=== PATIENT | female | born 1985 | race Two or more races ===

== ENCOUNTER 2019-05-26 10:00 | Inpatient (IN) | payer MEDICAID ==
[~2019-05-26] VITALS: Ht 152.4 cm; Wt 71.0 kg
[2019-05-27 10:38] VITALS: BMI 28.6
[2019-05-27] MEDS ORDERED: LACTATED RINGER'S 1,000 ML IV SCH ×2 (10:39→17:56)
[2019-05-27] MEDS ORDERED: METHYLERGONOVINE 0.2 MG INJ IM PRN ×2 (11:00→18:00)
[2019-05-27] MEDS ORDERED: AZITHROMYCIN 500MG/NS (PMX) 250 ML IV SCH (11:00)
[2019-05-27] MEDS ORDERED: CARBOPROST 250 MCG INJ IM PRN ×2 (11:00→18:00)
[2019-05-27] MEDS ORDERED: CEFAZOLIN 2 GM/50 ML (PMX) 50 ML IVPB SCH (11:00)
[2019-05-27] MEDS ORDERED: OXYTOCIN 30 UNITS/LR 500 ML IV PRN ×2 (11:00→18:00)
[2019-05-27] MEDS ORDERED: MISOPROSTOL 200 MCG TAB PR PRN ×2 (11:00→18:00)
[2019-05-27] MEDS ORDERED: LACTATED RINGER'S 1,000 ML IV ONE (11:19)
--- NOTE | 2019-05-27 11:19 | PREAC ---
Date/Time of Note Date/Time of Note DATE: 05/27/19 TIME: 11:18 Anesthesia Eval and Record Evaluation Time Pre-Procedure Interview DATE: 05/27/19 TIME: 11:18 Age 33 Sex female NPO: 8 hrs Preoperative diagnosis intrauterine Planned procedure repeat c section Past Medical History Past Medical History: Includes : : (3), Para: (2), Gestational age: (39) Surgery & Anesthesia Issues No known issue Meds Anticoagulation: No Beta Lenin within 24 hr: No Reason Beta Lenin not given: Pt. not on B-Lenin Current Medications Lactated Ringer's 1,000 ml @ 125 mls/hr Q8H IV ; Start 05/27/19 at 10:39 Cefazolin Sodium/ Dextrose 50 ml @ 100 mls/hr ONCE IVPB ; Start 05/27/19 at 11:00 Azithromycin 250 ml @ 250 mls/hr ONCE IV ; Start 05/27/19 at 11:00 Oxytocin/Lactated Ringer's 500 ml @ 0 mls/hr ONCE PRN IV .VAGINAL BLEEDING; Start 05/27/19 at 11:00 Methylergonovine Maleate (Methergine) 0.2 mg ONCE PRN IM .VAGINAL BLEEDING; Start 05/27/19 at 11:00 Carboprost Tromethamine (Hemabate) 250 mcg ONCE PRN IM .VAGINAL BLEEDING; Start 05/27/19 at 11:00 Misoprostol (Cytotec) 1,000 mcg ONCE PRN VA .VAGINAL BLEEDING; Start 05/27/19 at 11:00 Meds reviewed: Yes Allergies Coded Allergies: No Known Allergy (Verified , 04/13/10) Allergies Reviewed: Yes Labs/Studies Labs Reviewed: Reviewed by anesthesiologist Result Diagram: 05/27/19 1055 Laboratory Tests 05/27/19 10:55 test: N/A Pre-procedure Exam Airway: Adequate mouth opening, Adequate thyromental dist Mallampati: Mallampati II Teeth: Normal Lung: Normal Heart: Normal ASA Physical Status ASA physical status: 2 Emergency: None Planned Anesthetic Neuraxial: Spinal Planned Pain Management Sub-arachniod narcotics, Parenteral pain med Pre-operative Attestations Prior to commencing anesthesia and surgery, the patient was re-evaluated, there was verification of: *The patient's identity *The results of appropriate recent lab work and preoperative vital signs *The above evaluation not changing prior to induction *Anesthetic plan, risk benefits, alternative and complications discussed with patient/family; questions answered; patient/family understands, accepts and wishes to proceed. LIBRADO BUSTAMANTE MD May 27, 2019 11:19
[2019-05-27] MEDS ORDERED: FAMOTIDINE 20 MG INJ IV ONE (11:30)
[2019-05-27] MEDS ORDERED: METOCLOPRAMIDE 10 MG INJ IV ONE (11:30)
[2019-05-27] MEDS ORDERED: CITRIC ACID/NA CITRATE 30 ML CUP PO ONE (11:30)
[2019-05-27 11:38] VITALS: BP 115/64; PULSE 63
[2019-05-27 12:59] VITALS: Ht 152.4 cm; Wt 71.0 kg
--- NOTE | 2019-05-27 13:20 | HP ---
Date/Time of Note Date/Time of Note DATE: 05/27/19 TIME: 13:18 OB - History Hx of Present Chief Complaint: scheduled Estimated Due Date: Jun 02, 2019 : 3 Para: 2 Spontaneous : 0 Therapeutic : 0 Care: Good Care Ultrasounds: Normal mid trimester US Obstetrical Complications: None Medical Complications: None Past Family/Social History * Past Medical, Surgical, Family and Obstetric Histories reviewed from chart. GBS Status: Negative OB Admission Exam Vital Signs Vital Signs Vital Signs Date Temp Pulse Resp B/P (MAP) Pulse Ox O2 O2 Flow FiO2 Time Delivery Rate 05/27/19 97.4 63 115/64 Room Air 11:38 (81) Physical Exam HEENT: WNL Heart: Rhythm Normal Lungs: Clear, Equal Abdomen: WNL Extremities: Normal Reflexes: Normal Cervical Dilatation: None Heart Rate: 120's Accelerations: Accelerations Present Decelerations: No Decelerations Varibility: Moderate Last 72 hours Lab Results CBC & BMP 05/27/19 10:55 OB Assessment/Plan Reason for admission: section Other Assessment: voluntary sterilization Plan: Section, Other Other plan: Bilateral tubal ligation REG SALDANA MD May 27, 2019 13:20
[2019-05-27] MEDS ORDERED: morphine SULFATE/PF (10 MG/10 ML) INJ ONE (13:29)
[2019-05-27] MEDS ORDERED: EPHEDrine 25 MG/5 ML SYG ONE (13:30)
[2019-05-27] MEDS ORDERED: NALOXONE (0.4 MG/ML) INJ IV PRN (14:00)
[2019-05-27] MEDS ORDERED: HYDROmorphONE 1 MG/5 ML IV SYRINGE IV PRN ×3 (14:00)
[2019-05-27] MEDS ORDERED: DIPHENHYDRAMINE 50 MG INJ IV PRN ×2 (14:00)
[2019-05-27] MEDS ORDERED: PROCHLORPERAZINE 10 MG INJ IV PRN (14:00)
[2019-05-27] MEDS ORDERED: KETOROLAC 30 MG INJ IV PRN (14:00)
[2019-05-27] MEDS ORDERED: MEPERIDINE 25 MG INJ IV PRN (14:00)
[2019-05-27] MEDS ORDERED: NALBUPHINE HCL (10 MG/1 ML) INJ IV PRN (14:00)
[2019-05-27] MEDS ORDERED: EPHEDrine 25 MG/5 ML SYG IV PRN (14:00)
[2019-05-27] MEDS ORDERED: FENTAnyl 50 MCG/ML VIAL IV PRN ×3 (14:00)
[2019-05-27] MEDS ORDERED: ONDANSETRON 4 MG INJ IV PRN ×2 (14:00)
[2019-05-27] MEDS ORDERED: ZOLPIDEM 5 MG TAB PO PRN (14:00)
[2019-05-27] MEDS ORDERED: HYDROmorphONE 0.5 MG/0.5 ML SYG IV PRN ×2 (14:00)
[2019-05-27] MEDS ORDERED: ONDANSETRON 4 MG INJ ONE (14:07)
[2019-05-27] MEDS ORDERED: OXYTOCIN 30 UNITS/LR 500 ML IV ONE (14:36)
--- NOTE | 2019-05-27 15:08 | OPPN ---
Date/Time of Note Date/Time of Note DATE: 05/27/19 TIME: 15:05 Operative Report Planned Procedure Procedure date May 27, 2019 Procedure(s) Repeat c/s and lysis of adhesions Performed by Reg Saldana MD Security Researcher: MT CLANCY MD 2nd Security Researcher none Anesthesiologist: LIBRADO BUSTAMANTE MD Pre-procedure diagnosis Previous c/s and voluntary sterilization [id number] Anesthesia Type: [id number] spinal Post-Procedure Post-procedure diagnosis same and pelvic adhesions Findings Live Baby [], Apgars [] and [], weight [], position [], [] presentation []cord. Estimated Blood Loss: other (700 ml) Specimen(s) placenta Grafts/Implant(s) none Complication(s) none REG SALDANA MD May 27, 2019 15:07
--- NOTE | 2019-05-27 15:19 | PAC ---
Date/Time of Note Date/Time of Note DATE: 05/27/19 TIME: 15:18 Post-Anesthesia Notes Post-Anesthesia Note Last documented vital signs Vital Signs Date Temp Pulse Resp B/P (MAP) Pulse Ox O2 O2 Flow FiO2 Time Delivery Rate 05/27/19 97.4 63 115/64 Room Air 11:38 (81) Activity: WNL Respiratory function: WNL Cardiovascular function: WNL Mental status: Baseline Pain reasonably controlled: Yes Hydration appropriate: Yes Nausea/Vomiting absent: Yes Comments BP: 118/58 HR: 68 RR: 15 T: 97.4 SaO2: 100% LIBRADO BUSTAMANTE MD May 27, 2019 15:19
[2019-05-27] MEDS: KETOROLAC 30 MG INJ IV PRN ×2 (16:24→23:14)
[2019-05-27] MEDS ORDERED: OXYTOCIN 30 UNITS/LR 500 ML IV SCH (17:56)
[2019-05-27 18:00] VITALS: BP 123/63; PULSE 62; RESP 18
[2019-05-27] MEDS ORDERED: LANOLIN HPA 1 PKT TOP PRN (18:00)
[2019-05-27 19:00] VITALS: BP 110/69; PULSE 64; RESP 18
--- NOTE | 2019-05-27 19:29 | OPR ---
DATE OF OPERATION: 05/27/2019 PREOPERATIVE DIAGNOSES: 1. at term with previous section x2. 2. Voluntary sterilization. POSTOPERATIVE DIAGNOSES: 1. at term with previous section x2. 2. Voluntary sterilization. 3. Dense pelvic adhesions. OPERATION: Repeat low transverse section and lysis of adhesions. SURGEON: Reg Juan MD FACILITIES CLERK: Lion Mckeon MD ANESTHESIA: Spinal anesthesia. ANESTHESIOLOGIST: Dr. Rivera PROCEDURE: The patient was taken to operating room, placed on the operating table. After successful spinal anesthesia was given, the patient was placed in supine position. The area was prepared and d raped in the usual sterile fashion. Spinal anesthesia was tested and was satisfactory. Using a scal pel, Pfannenstiel incision was made about 2 fingerbreadths above the symphysis pubis. Incision was c arried down to the fascia. The fascia was incised and extended bilaterally with Fountain scissors. Two Kochers were used to separate the fascia from the muscle. The muscle was taken down to peritoneum. The peritoneum was secured with 2 Kellys, incised with Metzenbaum scissors. Upon entering the perito korina cavity, there were dense pelvic adhesions involving the anterior aspect of the uterus. In order to access the lower segment of the uterus, sharp lysis of adhesions was performed. Using a scalpel, a small transverse incision was made in the lower segment of uterus. Upon entering the uterine cavi ty, bandage scissors were inserted to extend the incision bilaterally, curved up. Baby was delivered from cephalic presentation. There was a nuchal cord. Apgars were 8 and 9. Placenta was delivered without difficulty. The uterus was closed in #1 Monocryl continuous locked. Due to dense pelvic adh esions, the ovaries and the fallopian tubes could not be reached. Therefore, patient was counseled t hat the bilateral tubal ligation could not be done at this time. After assuring hemostasis, the musc le was reapproximated with 0 chromic. The fascia was closed with #1 Vicryl continuous in 2 segments. Subcutaneous tissue was reapproximated with 2-0 plain. The skin was closed with abraham. ESTIMATED BLOOD LOSS: 700 mL COUNTS: All counts were correct. Dictated By: REG JUAN MD GD/NTS Conf#: [id number] DID#: [id number]
[2019-05-27 20:00] VITALS: BP 114/63; PULSE 68; RESP 20
[2019-05-27] MEDS: SENNA/DOCUSATE NA (8.6MG/50MG) TAB PO SCH (21:00)
[2019-05-28 00:44] VITALS: BP 111/54; PULSE 70; RESP 20
[2019-05-28 04:43] VITALS: BP 119/59; PULSE 62; RESP 20
[2019-05-28] MEDS: KETOROLAC 30 MG INJ IV PRN ×2 (05:47→12:07)
[2019-05-28 08:00] VITALS: BP 104/47; PULSE 70; RESP 18
[2019-05-28] MEDS: SENNA/DOCUSATE NA (8.6MG/50MG) TAB PO SCH ×2 (09:58→20:56)
--- NOTE | 2019-05-28 11:57 | QN ---
Documentation Comment No complaint Afebrile VSS Abdomen soft ND POD #1 Stable Ambulate Advance diet. REG SALDANA MD May 28, 2019 11:57
[2019-05-28 12:00] VITALS: BP 112/57; PULSE 84; RESP 17
[2019-05-28] MEDS: IBUPROFEN 800 MG TAB PO SCH ×2 (14:32→21:27)
[2019-05-28 16:00] VITALS: BP 101/61; PULSE 80; RESP 18
[2019-05-28 19:20] VITALS: BP 104/57; PULSE 77; RESP 19
[2019-05-29] MEDS: OXYCODONE/ACETAMINOPHEN (5/325) TAB PO PRN ×4 (03:04→16:37)
[2019-05-29 03:15] VITALS: BP 102/63; PULSE 67; RESP 20
[2019-05-29] MEDS: IBUPROFEN 800 MG TAB PO SCH ×3 (05:53→21:18)
[2019-05-29 08:30] VITALS: BP 107/58; PULSE 72; RESP 18
[2019-05-29] MEDS: SENNA/DOCUSATE NA (8.6MG/50MG) TAB PO SCH ×2 (09:01→20:51)
--- NOTE | 2019-05-29 14:41 | DS ---
Date/Time of Note Date/Time of Note DATE: 05/29/19 TIME: 14:40 Obstetrical Discharge Record Final Diagnosis Final Diagnosis: Term delivered Other Final Diagnosis pelvic adhesions Section Section: Repeat Condition on Discharge Physical Assessment Voiding: Yes Bowel Movement: Yes Breast: Soft, non-tender, Filling Fundus: Firm Abdomen and Incision: Incision intact Calf Tenderness: No Patient Condition: Stable REG SALDANA MD May 29, 2019 14:40
[2019-05-29 16:35] VITALS: BP 104/57; PULSE 67; RESP 16
[2019-05-29 19:30] VITALS: BP 103/56; PULSE 70; RESP 20
[2019-05-30] MEDS: OXYCODONE/ACETAMINOPHEN (5/325) TAB PO PRN ×2 (01:44→08:00)
[2019-05-30 04:00] VITALS: BP 104/58; PULSE 78; RESP 19
[2019-05-30] MEDS: IBUPROFEN 800 MG TAB PO SCH (05:31)
[2019-05-30 08:36] VITALS: BP 109/56; PULSE 69; RESP 22
[2019-05-30] MEDS ORDERED: DIPHTH/TET/ACEL PERTUSS (ADULT) 0.5 ML VIAL IM* ONE (09:00)
[2019-05-30] MEDS: SENNA/DOCUSATE NA (8.6MG/50MG) TAB PO SCH (10:03)
--- NOTE | 2019-05-31 16:00 | DELSUM ---
Delivery Summary A-C Datetime Report Generated by CPN: 05/31/2019 16:00 DELIVERY PERSONNEL Assembly Repairer: Badgett, Pushpa MATERNAL INFORMATION Delivery Anesthesia: Spinal Medications in Delivery: pitocin, zithro, ancef Delivery QBL (ml): 600 Placenta Cultured: No Maternal Complications: Other RN Comments: hx of GDM but not with this preg, #3 c/s, unable to do tubal due to pt has lots of scar tissue. pt told mid c section and has no questions presently LABOR SUMMARY EDC: 06/03/2019 00:00 No. Babies in Womb: 1 Attempted: No Labor Anesthesia: None LABOR INFORMATION Reason for Induction: Not Applicable Group B Beta Strep: Negative Antibiotics # of Doses: 2 Antibiotics Time of Last Dose: 05/27/2019 13:45 Steroids Given: None Reason Steroids Not Administered: Not Applicable MEMBRANES Membranes Rupture Method: Artificial Rupture of Membranes: 05/27/2019 14:05 Length of Rupture (hr): 0.02 Amniotic Fluid Color: Clear Amniotic Fluid Amount: Moderate Amniotic Fluid Odor: Normal STAGES OF LABOR Stage 3 hr: 0 Stage 3 min: 1 CSECTION DELIVERY Primary Indication: Repeat Elective Secondary Indication: Repeat Elective CSection Urgency: Elective CSection Incidence: Repeat Labor: Labor Elective: Elective CSection Incision: Lower Uterine Transverse BABY A INFORMATION Infant Delivery Date/Time: 05/27/2019 14:06 Method of Delivery: Born in Route : No : N/A Forceps: N/A Vacuum Extraction: N/A Shoulder Dystocia : No SHOULDER DYSTOCIA BABY A Delivery Date/Time: 05/27/2019 14:06 PRESENTATION/POSITION BABY A Presentation: Cephalic Cephalic Presentation: Vertex Vertex Position: Left Occipital Anterior Breech Presentation: N/A PLACENTA INFORMATION BABY A Placenta Delivery Time : 05/27/2019 14:07 Placenta Method of Delivery: Manual Removal Placenta Status: Delivered SCORES BABY A Heart Rate 1 min: >100 bpm Resp Effort 1 min: Good Cry Reflex Irritability 1 min: Cough/Sneeze/Pulls Away Muscle Tone 1 min: Active Motion Color 1 min: Blue/Pale Resuscitation Effort 1 min: Tactile Stimulation; Oxygen SCORE 1 MIN: 8 Heart Rate 5 min: >100 bpm Resp Effort 5 min: Good Cry Reflex Irritability 5 min: Cough/Sneeze/Pulls Away Muscle Tone 5 min: Active Motion Color 5 min: Body [place], Extremit Blue Resuscitation Effort 5 min: Tactile Stimulation; Oxygen SCORE 5 MIN: 9 INFANT INFORMATION BABY A Gestational Age at Delivery: 39.0 Gestational Status: Full Term- 39- 40.6 Weeks Outcome : Liveborn, with signs of life Infant Condition : Stable Sex: Male IDENTIFICATION/MEDS BABY A ID Band Number: [id number] ID Band Location: Right Leg; Left Arm Sensor Applied: Yes Sensor Number: [id number] Sensor Location : Cord Clamp Vitamin K Given : Not Given Erythromycin Given: Not Given WEIGHT/LENGTH BABY A Infant Birthweight (gm): 3265 Infant Weight (lb): 7 Infant Weight (oz): 3 Length (in): 20.00 Length (cm): 50.80 CORD INFORMATION BABY A No. Cord Vessels: 3 Nuchal Cord : Around Neck x1, Loose Cord Blood Taken: Yes Infant Suction: Mouth; Nose ASSESSMENT BABY A Infant Complications- Other: #3 C/S, nuco cord Physical Findings at Delivery: Within Normal Limits Respirations: Appears Normal Spinning And Winding Supervisor/ALS Called : Yes Care By: URBAN nugent rn, NICU TECH greg Transferred To: Remains with Mother
== END 2019-05-30 13:30 | disposition home or self-care (01) | DRG 788 ==
LOC: L-D 05-27 09:59 → PP1 05-27 17:53
PROVIDERS: ADMIT Obstetrics & Gynecology; ATTEND Obstetrics & Gynecology
PROC: 10D00Z1 Extraction of Products of Conception, Low, Open Approach (ICD-10-PCS; principal; 2019-05-27 12:30)
DX: O65.5 Obstructed labor due to abnormality of maternal pelvic organs (principal); O34.211 Maternal care for low transverse scar from previous cesarean delivery; N73.6 Female pelvic peritoneal adhesions (postinfective); Z3A.39 39 weeks gestation of pregnancy; Z37.0 Single live birth
CPT/HCPCS: 85025; 85610; 85730; 86592; 86850; 86900; 86901; 87340; 99464; J0456; J0690; J1170; J1885; J2274; J2405; J2590; J2765; J7120

== ENCOUNTER 2019-06-12 15:20 | Emergency (ER) | payer MEDICAID ==
[~2019-06-12] VITALS: Ht 160 cm; Wt 63.5 kg
[~2019-06-12 15:20] MED LIST: ACET500C5 PO; NITR-58 PO
[2019-06-12 15:23] VITALS: BP 121/57; PULSE 73; RESP 16; Ht 160 cm; Wt 63.5 kg
[2019-06-12] MEDS ORDERED: ACETAMINOPHEN 500 MG TAB PO STA (15:55)
--- NOTE | 2019-06-12 15:58 | ERD ---
ER Documentation Chief Complaint Chief Complaint Bilateral shoulder pain x 3 weeks since , denies SOB HPI History and physical exam and plan of care discussion performed via [employer] This is a 33-year-old female patient who presents emergency room with complaint of bilateral shoulder pain x3 weeks since the delivery of her baby. States her pain is worse when she is looking down breast-feeding, pain improves with rest. Patient has not tried using any Tylenol, ice or any thing to help with her pain. Patient denies any injuries, no fevers, + dysuria. ROS All systems reviewed and are negative except as per history of present illness. Medications Home Meds Active Scripts Acetaminophen* (Tylophen*) 500 Mg Capsule, 2 CAP PO Q8H PRN for PAIN AND OR ELEVATED TEMP, #20 CAP Prov:AVNI TEIXEIRA NP 06/12/19 Nitrofurantoin Monohyd Macrocr (Macrobid) 100 Mg Capsr, 100 MG PO BID for 5 Days, #10 CAP Prov:AVNI TEIXEIRA NP 06/12/19 Allergies Allergies: Coded Allergies: No Known Allergy (Verified , 04/13/10) PMhx/Soc Medical and Surgical Hx: pt denies Medical Hx History of Surgery: Yes (3 C SECTIONS) Hx Alcohol Use: No Hx Substance Use: No Hx Tobacco Use: No Smoking Status: Never smoker Physical Exam Vitals Vital Signs Date Temp Pulse Resp B/P (MAP) Pulse Ox O2 O2 Flow FiO2 Time Delivery Rate 06/12/19 98.2 73 16 121/57 99 15:23 (78) Physical Exam Const: No acute distress Head: Atraumatic Eyes: Normal Conjunctiva, PERRL ENT: Normal External Ears, Nose and Mouth. Neck: Full range of motion. No meningismus. No lymphadenopathy, no cervical spinal tenderness. Resp: Clear to auscultation bilaterally Cardio: Regular rate and rhythm, no murmurs Abd: Soft, non tender, non distended. Normal bowel sounds Skin: No petechiae or rashes. incision without redness, healing appropriately Back: No midline or flank tenderness, no CVT Ext: No cyanosis, or edema. MSK: No gross deformities appreciated, no paraspinal tenderness, good distal pulses, FROM of BLUE Neur: Awake and alert, clear speech, steady gait, no paresthesia Psych: Normal Mood and Affect Results 24 hrs Laboratory Tests Test 06/12/19 16:01 Urine Color YELLOW Urine Clarity CLEAR Urine pH 5.0 Urine Specific [place] 1.024 Urine Ketones NEGATIVE mg/dL Urine Nitrite NEGATIVE mg/dL Urine Bilirubin NEGATIVE mg/dL Urine Urobilinogen NEGATIVE mg/dL Urine Leukocyte Esterase TRACE Cele/ul Urine Microscopic RBC 14 /HPF Urine Microscopic WBC 4 /HPF Urine Mucus FEW /HPF Urine Hemoglobin 2+ mg/dL Urine Glucose NEGATIVE mg/dL Urine Total Protein NEGATIVE mg/dl Current Medications Medications Dose Sig/Noe Start Time Status Last (Trade) Ordered Route PRN Stop Time Admin Dose Reason Admin 1,000 mg ONCE STAT 06/12/19 DC 06/12/19 Acetaminophen PO 15:55 06/12/19 16:02 (Tylenol 15:57 Tab) Procedures/MDM PROCEDURES/MDM DIAGNOSTIC IMAGING: Not indicated -Medications: Tylenol Patient tolerated medication well with no adverse reactions. Patient reported improvement in pain. MDM: This is a 33-year-old female patient presents emergency room with complaint of bilateral upper trapezius pain without injury, no paresthesias. Patient states she has been doing a lot of lifting since the of her child and holding her child frequently and looking down which exacerbates the pain in her bilateral shoulders. Patient has not tried any self-care such as heat, ice, stretching or use of Tylenol. Patient has full range of motion, no paresthesias, low suspicion for cervical spinal involvement, compartment syndrome, neurovascular or neurological etiology. Patient has been instructed on stretching, use of heat and ice, use of Tylenol, body mechanics, increasing rest and hydration. There is low suspicion for pyelonephritis, vaginitis, STI, or interstitial cystitis due to absence of clinical findings that would support a diagnosis more serious than uncomplicated UTI. These diagnoses have been considered and ex cluded clinically. Nonetheless, it is understood by both the patient and provider that no clinical or diagnostic assessment can entirely exclude such diseases. Patient has been instructed on signs and symptoms of concern or with evolving condition with strict instructions to return to ED for reevaluation. DISPOSITION and PLAN: RX: Tylenol, Macrobid The patient has been discharge home to follow-up with community physician. Departure Diagnosis: Primary Impression: Cystitis Additional Impression: Neck muscle strain Encounter type: initial encounter Qualified Codes: S16.1XXA - Strain of muscle, fascia and tendon at neck level, initial encounter Condition: Stable AVNI TEIXEIRA NP Jun 12, 2019 15:58
== END 2019-06-12 16:51 | disposition home or self-care (01) ==
LOC: FTE 15:20
DX: S16.1XXA Strain of muscle, fascia and tendon at neck level, initial encounter (principal); N30.90 Cystitis, unspecified without hematuria; X50.1XXA Overexertion from prolonged static or awkward postures, initial encounter; Y92.9 Unspecified place or not applicable
CPT/HCPCS: 81001; Z7502; Z7610; 99282